=== PATIENT | female | born 1955 | race Hispanic/Latino ===

== ENCOUNTER → 2017-03-04 | Outpatient (CLI) | payer MEDICARE | END | disposition home or self-care (01) | LOC: RAH 16:55 | PROVIDERS: ATTEND Nurse Practitioner Family | DX: R05 Cough (principal) | CPT/HCPCS: 71046 ==

== ENCOUNTER → 2017-05-27 | Outpatient (CLI) | payer MEDICARE | END | disposition home or self-care (01) | LOC: RAH 16:13 | PROVIDERS: ATTEND Internal Medicine | DX: R55 Syncope and collapse (principal); K21.9 Gastro-esophageal reflux disease without esophagitis | CPT/HCPCS: 70450 ==

== ENCOUNTER → 2024-07-06 | Outpatient (CLI) | payer MEDICARE, MEDICAID ==
--- NOTE | 2024-07-06 14:09 | HMCIMG ---
Nuclear medicine gastric emptying study HISTORY: ANOREXIA. COMPARISON: No relevant prior studies. RADIOPHARMACEUTICAL: 1 mCi of technetium 99 sulfur colloid TECHNIQUE: Dynamic computer imaging and serial static images were performed over the anterior abdomen for 1 hour. Static images obtained up to 2 hours. By region of interest computer analysis, a time/activity curve for the stomach was generated and a T 1/2 for clearance of activity was determined. FINDINGS: Review of dynamic images does not demonstrate any gastroesophageal reflux. T 1/2: 197 minutes (normal 55-90 minutes). Percent empty at 1 hour: 26 percent (less than 40 percent at one hour is consistent with delayed emptying). IMPRESSION: Gastroparesis
== END | disposition home or self-care (01) ==
LOC: RAH 11:13
PROVIDERS: ATTEND Internal Medicine Gastroenterology
DX: K31.84 Gastroparesis (principal); R63.0 Anorexia
CPT/HCPCS: 78264; A9541